=== PATIENT | male | born 1945 | race Caucasian/White ===

== ENCOUNTER → 2016-10-13 | Outpatient (CLI) | payer OTHER ==
[~2016-10-13] MED LIST: ASPI325T PO; ATOR20TA42 PO; COUM7.5T PO; GADODIAMIDE PF 287 MG/ML 20 ML VIAL (for RAD MRI) IV ONE; METO100T PO; PRED20 PO
--- NOTE | 2016-10-13 12:45 | RADRPT ---
EXAM DATE/TIME: 10/13/2016 11:18 INDICATIONS : Mass in the right atrium; followup to abnormal echocardiogram and CT pulmonary angiogram on . CONTRAST: 30 cc Omniscan (gadodiamide) IV MEDICAL HISTORY : Hypertension. SURGICAL HISTORY : ankle surgery ENCOUNTER: Subsequent ACUITY: 2 weeks PAIN SCORE: 2/10 LOCATION: chest TECHNIQUE: Multiplanar, multisequence MRI of the heart with and without contrast. FINDINGS: No mass is identified. 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 No defini te flow. Ventricle contracts normally. No significant valvular abnormalities. No enhancing mass ident ified. No pericardial abnormality. No significant aortic valvular abnormality. CONCLUSION: The abnormality seen on previous CT pulmonary angiogram corresponds with aneurysmal dilatation of the interatrial septum bulging into the right atrium. No mass or shunting identified. Raudel Lainez MD on October 13, 2016 at 12:25 Board Certified Radiologist. This report was verified electronically.
== END ==
LOC: HRAD 09:22
DX: R94.31 Abnormal electrocardiogram [ECG] [EKG] (principal)
CPT/HCPCS: 75561; A9579

== ENCOUNTER 2017-01-07 17:42 | Emergency (ER) | payer MEDICARE, OTHER ==
[~2017-01-07] VITALS: Ht 180.3 cm; Wt 120.0 kg
[~2017-01-07 17:42] MED LIST changes: -GADODIAMIDE PF 287 MG/ML 20 ML VIAL (for RAD MRI) IV ONE
[2017-01-07 17:45] VITALS: BP 137/77; PULSE 84; RESP 24; TEMP 97.5; O2SAT 97
[2017-01-07 20:48] VITALS: BP 157/86; PULSE 99; RESP 28; O2SAT 97
[2017-01-07] MEDS ORDERED: SODIUM CHLORIDE 0.9% FLUSH 10 ML FLUSH IVF PRN (21:00)
[2017-01-07] MEDS ORDERED: DIPHTH/TETANUS/ACEL PERTUSSIS (BOOSTER) 0.5 ML VIAL/PFS IM ONE (21:00)
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
[2017-01-07 22:03] LABS: AUTOMATED NEUTROPHIL # 8.1 TH/MM3 (1.8-7.7); BASOPHIL # 0.2 TH/MM3 (0-0.2); BASOPHIL % 1.7 % (0.0-2.0); EOSINOPHIL % 0.1 % (0.0-4.0); HEMATOCRIT 37.7 % (39.0-51.0); LYMPH % 8.3 % (9.0-44.0); LYMPHOCYTE # 0.9 TH/MM3 (1.0-4.8); MEAN CELL VOLUME 88.3 FL (80.0-100.0); MEAN CORPUSCULAR HEMOGLOBIN 28.9 PG (27.0-34.0); MEAN CORPUSCULAR HGB CONC 32.7 % (32.0-36.0); MONO % 11.4 % (0.0-8.0); NEUT % 78.5 % (16.0-70.0); PLATELET COUNT 227 TH/MM3 (150-450); RED BLOOD COUNT 4.27 MIL/MM3 (4.50-5.90); RED CELL DISTRIBUTION WIDTH 17.4 % (11.6-17.2); WHITE BLOOD COUNT 10.3 TH/MM3 (4.0-11.0)
[2017-01-07 22:13] LABS: HEMO FLAGS AUTO DIFF
[2017-01-07 22:19] LABS: BICARBONATE 24.9 MEQ/L (21.0-32.0); POTASSIUM 4.4 MEQ/L (3.5-5.1)
[2017-01-07 22:21] LABS: APTT (PATIENT) 35.4 SEC (24.3-30.1); INTERNATIONAL NORMALIZED RATIO 2.6 RATIO; PROTHROMBIN TIME - PATIENT 30.2 SEC (9.8-11.6)
[2017-01-07] MEDS ORDERED: ASPI325T PO (22:24)
[2017-01-07] MEDS ORDERED: COUM7.5T PO (22:24)
[2017-01-07] MEDS ORDERED: ATOR20TA15 PO (22:25)
[2017-01-07] MEDS ORDERED: FURO20TA PO (22:26)
[2017-01-07] MEDS ORDERED: VITA100021 SL (22:26)
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
[2017-01-07] MEDS ORDERED: IOHEXOL 350 MG/ML 10 ML VIAL (for RAD DIAG) IV ONE (22:48)
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
[2017-01-07 22:57] LABS: BANDS 1 % (0-6); METAMYELOCYTES 1 % (0-1); MYELOCYTES 1 % (0-0); POLYS (SEG NEUTROPHILS) 84 % (16-70); WBC DIFF SAMPLE 100
[2017-01-07 22:58] LABS: PLATELET ESTIMATE SMEAR NORMAL (NORMAL); PLATELET MORPHOLOGY NORMAL (NORMAL); SCAN/DIFF FINAL DIFF MANUAL
[2017-01-07 22:59] LABS: OVALOCYTES 1+ (NORMAL)
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
[2017-01-07 23:24] LABS: BLOOD, URINE NEG (NEG); GLUCOSE,URINE NEG (NEG); KETONE, URINE TRACE mg/dL (NEG); MUCUS URINE FEW /lpf (OCC); NITRITE,URINE NEG (NEG); URINE COLOR YELLOW (YELLW/STRAW)
[2017-01-07 23:26] LABS: COMMENT (UR) CULT NOT INDICATED; CULTURE IF INDICATED CULT NOT INDICATED
[2017-01-07 23:35] VITALS: BP_SYST 137; BP_SYST 147; BP_DIAS 67; BP_DIAS 78; PULSE 87; PULSE 90; RESP 18; O2SAT 99
[2017-01-08] MEDS ORDERED: oxyCODONE/ACETAMINOPHEN 5 MG/325 MG TAB PO ONE
[2017-01-08] MEDS ORDERED: PERC5TAB12 PO (00:10)
--- NOTE | 2017-01-08 11:56 | EKG ---
Date Performed: 01/07/2017 Time Performed: 21:41:54 PTAGE: 71 years EKG: Sinus rhythm WITH SINUS ARRHYTHMIA Nonspecific T-wave changes NORMAL ECG PREVIOUS TRACING : 11/01/2013 04.12 Compared to the prior study, sinus rhythm has replaced atri al fibrillation. Diffuse T-wave changes are better. DOCTOR: Anupam Felton Interpretating Date/Time 01/08/2017 11:55:11
== END 2017-01-08 00:26 | disposition home or self-care (01) ==
LOC: NEPD 17:42
DX: R59.9 Enlarged lymph nodes, unspecified (principal); S30.0XXA Contusion of lower back and pelvis, initial encounter; M25.461 Effusion, right knee; M25.471 Effusion, right ankle; M50.322 Other cervical disc degeneration at C5-C6 level; M50.31 Other cervical disc degeneration, high cervical region; I49.8 Other specified cardiac arrhythmias; Z23 Encounter for immunization; V28.4XXA Motorcycle driver injured in noncollision transport accident in traffic accident, initial encounter
CPT/HCPCS: 70450; 71010; 71260; 72125; 73030; 73564; 73610; 74177; 80048; 81001; 85007; 85027; 85610; 85730; 90471; 90715; 93005; 99285; Q9967

== ENCOUNTER 2017-01-09 23:09 | Emergency (ER) | payer MEDICARE, OTHER ==
[~2017-01-09 23:09] MED LIST changes: +ATOR20TA15 PO; -ATOR20TA42 PO; +FURO20TA PO; -METO100T PO; +PERC5TAB12 PO; -PRED20 PO; +VITA100021 SL
[2017-01-09 23:14] VITALS: BP 141/66; PULSE 80; RESP 16; TEMP 99; O2SAT 99
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
[2017-01-10] MEDS ORDERED: oxyCODONE/ACETAMINOPHEN 5 MG/325 MG TAB PO ONE (01:00)
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
[2017-01-10] MEDS ORDERED: WALKER/ADULT/FO1 MIS (02:50)
== END 2017-01-10 03:34 | disposition home or self-care (01) ==
LOC: NEPD 23:09
DX: S93.401D Sprain of unspecified ligament of right ankle, subsequent encounter (principal); S80.211A Abrasion, right knee, initial encounter; S80.01XA Contusion of right knee, initial encounter; I48.91 Unspecified atrial fibrillation; V29.9XXA Motorcycle rider (driver) (passenger) injured in unspecified traffic accident, initial encounter; W06.XXXA Fall from bed, initial encounter; Z79.01 Long term (current) use of anticoagulants; Z79.82 Long term (current) use of aspirin; Z79.899 Other long term (current) drug therapy
CPT/HCPCS: 73610; 73700; 99284; E0113; L1906